=== PATIENT | female | born 1995 | race Caucasian/White ===

== ENCOUNTER 2018-04-07 07:54 | Emergency (ER) | payer OTHER ==
[~2018-04-07] VITALS: Ht 170.2 cm; Wt 53.9 kg
[2018-04-07 07:57] VITALS: BP 123/69; PULSE 75; RESP 19; Ht 170.2 cm; Wt 53.9 kg
--- NOTE | 2018-04-07 08:31 | ERD ---
ER Documentation Chief Complaint Chief Complaint stabbing like pain on the left chest area started last got worse HPI 23-year-old female presents to the emergency department complaining of a constant moderate midsternal chest pain with intermittent stabbing pain and shortness of breath since last . Patient denies any shortness of breath at this time. Denies any drug or alcohol use. Denies any history of any heart disease or other medical problems. Denies oral contraceptives, recent traveling or surgeries. ROS All systems reviewed and are negative except as per history of present illness. Medications Home Meds Active Scripts Acetaminophen* (Tylophen*) 500 Mg Capsule, 1 CAP PO Q4 PRN for PAIN AND OR ELEVATED TEMP, #30 CAP Prov:NEGRO GALINDO PA-C 04/07/18 Omeprazole* (Omeprazole*) 20 Mg Capsule.dr, 20 MG PO DAILY, #14 Prov:NEGRO GALINDO PA-C 04/07/18 PMhx/Soc Medical and Surgical Hx: pt denies Medical Hx, pt denies Surgical Hx Hx Alcohol Use: Yes (occ) Hx Substance Use: No Hx Tobacco Use: Yes (occ) Smoking Status: Current some day smoker Physical Exam Vitals Vital Signs Date Temp Pulse Resp B/P (MAP) Pulse Ox O2 O2 Flow FiO2 Time Delivery Rate 04/07/18 97.2 75 19 123/69 96 07:57 (87) Physical Exam General: well-developed/well-nourished, in no apparent distress, non-toxic appe aring HENT: NC/AT, bilateral tympanic membrane is normal with good cone of light, nares patent, oropharynx clear without exudates Eyes: Conjunctiva normal, PERRLA, EOMI Neck: Supple, no lymphadenopathy Pulm: CTA bilaterally, no rales, rhonchi, or wheezing heard CV: Normal S1S2 GI: Soft, non-distended, normal bowel sounds, tender to palpation in pelvic region, negative rosvings, negative pedraza's Back: No midline tenderness, no masses, No CVAT Ext: No clubbing, cyanosis, or edema Neuro: Alert and Orientated, gait normal Skin: Intact, normal turgor Psych: Normal mood and mentation Results 24 hrs Laboratory Tests Test 04/07/18 08:31 POC Beta HCG, Qualitative NEGATIVE Procedures/MDM 23-year-old female presents emergency department complaining of constant chest pain since last . I doubt ACS or other acute component patient at this time. Heart score is low. Patient does not meet Wells criteria. There is no evidence of Yumi Parkinson syndrome on EKG. Patient is instructed to follow-up with her primary care physician to get a referral to see a roller stainer. I have given her return precautions she understands and agrees with plan. Prescription for Prilosec was given trial of treatment of heartburn. Prescription for Tylenol was also provided. Return precautions given the understanding to this EKG: read and signed off by myself and Saucedo Rate/Rhythm: Normal Sinus Rhythm 71bpm QRS, ST, T-waves: Short NV 109 ms, no changes consistent w/ acute ischemia Impression: No evidence of ischemia or arrhythmia Chest X-ray 1V Interpreted by me: Soft Tissue: No acute abnormalities Bones: No acute abnormalities Mediastinum/Cardiac Silhouette/Lungs: No acute abnormalities Departure Diagnosis: Primary Impression: Chest pain Condition: Stable NEGRO GALINDO PA-C Apr 07, 2018 08:31
[2018-04-07] MEDS ORDERED: OMEP20CA16 PO (08:48)
[2018-04-07] MEDS ORDERED: ACET500C5 PO (08:48)
== END 2018-04-07 09:14 | disposition home or self-care (01) ==
LOC: FTE 07:54
DX: R07.9 Chest pain, unspecified (principal); F17.210 Nicotine dependence, cigarettes, uncomplicated
CPT/HCPCS: 71045; 81025; 93005; Z7502